=== PATIENT | male | born 1955 | race African-American/Black ===

== ENCOUNTER 2019-01-20 20:07 | Emergency (ER) | payer MEDICAID, MEDICARE ==
[~2019-01-20] VITALS: Ht 188 cm; Wt 90.0 kg
[~2019-01-20 20:07] MED LIST: ASPI-1182 PO; ATOR40TA28 PO; CHLO50I IM; TRAM50TA4 PO
[2019-01-20 22:26] LABS: BASOPHILS % (AUTO) 0.9 % (0.0-2.0); EOSINOPHILS % (AUTO) 3.8 % (1.0-6.0); HEMATOCRIT 42.6 % (41-53); LYMPHOCYTES # (AUTO) 2.4 K/uL (1.0-4.8); LYMPHOCYTES % (AUTO) 44.6 % (22.0-44.0); MEAN CORPUSCULAR HEMOGLOBIN 30.2 pg (26.0-34.0); MEAN CORPUSCULAR HGB CONC 32.9 G/dL (31.0-37.0); MEAN CORPUSCULAR VOLUME 92 fL (80-100); MONOCYTES # (AUTO) 0.6 K/uL (0.1-1.0); MONOCYTES % (AUTO) 11.3 % (2.0-9.0); NEUTROPHILS # (AUTO) 2.1 K/uL (1.8-7.7); NEUTROPHILS % (AUTO) 39.4 % (40.0-70.0); PLATELET COUNT (AUTO) 122 K/uL (150-450); RED BLOOD CELL COUNT(AUTO) 4.64 MIL/uL (4.50-5.90); RED CELL DISTRIBUTION WIDTH 15.4 % (11.5-14.5)
[2019-01-20 22:36] LABS: ANION GAP 4 mmol/L (8-16); CALCIUM, TOTAL 9.1 mg/dL (8.8-10.5); CARBON DIOXIDE 29 mmol/L (22-29); CHLORIDE 106 mmol/L (98-107); GLOMERULAR FILTR. RATE CALC > 60 mL/min (>60); GLUCOSE,RANDOM 94 mg/dL (70-110); POTASSIUM 3.7 mmol/L (3.5-5.1); SODIUM SERUM 139 mmol/L (136-145); UREA NITROGEN, BLOOD 10 mg/dL (7-18)
[2019-01-20 22:44] LABS: ALANINE AMINOTRANSFERASE 26 U/L (12-78); ALBUMIN 3.2 g/dL (3.4-5.0); ALKALINE PHOSPHATASE 128 U/L (46-116); ASPARTATE AMINOTRANSFERASE 34 U/L (15-37); BILIRUBIN,TOTAL 0.5 mg/dL (0.1-1.0); LIPASE 79 U/L (73-393); TOTAL PROTEIN, SERUM 7.5 g/dL (6.4-8.2)
[2019-01-21] MEDS ORDERED: SODIUM CHLORIDE 0.9% 500 ML IV ONE (00:45)
[2019-01-21] MEDS ORDERED: ONDANSETRON HCL 4 MG/2 ML VIAL IVP ONE (00:45)
[2019-01-21] MEDS ORDERED: WATER IV ONE (00:45)
[2019-01-21] MEDS ORDERED: CHLORPROMAZINE HCL IV ONE ×2 (00:45→01:00)
[2019-01-21] MEDS ORDERED: FAMOTIDINE 40 MG in SODIUM CHLORIDE 0.9% 100 ML IV ONE (00:45)
[2019-01-21] MEDS ORDERED: DEXTROSE 5% IV ONE (00:45)
[2019-01-21] MEDS ORDERED: SODIUM CHLORIDE 0.9% IV ONE (01:00)
[2019-01-21 04:23] VITALS: BP 117/75
== END 2019-01-21 04:40 | disposition home or self-care (01) ==
LOC: EMS 20:09
DX: R06.6 Hiccough (principal); I51.9 Heart disease, unspecified; I25.2 Old myocardial infarction; Z59.0 Homelessness; Z91.018 Allergy to other foods; Z79.82 Long term (current) use of aspirin
CPT/HCPCS: 36415; 80053; 83690; 84484; 85025; 93005; 96365; 96375; 99285; G0480; J2405; J3230; J3490; J7030; J7040; J7050; J7060